=== PATIENT | male | born 1965 | race African-American/Black ===

== ENCOUNTER 2016-06-03 21:30 | Emergency (ER) | payer OTHER ==
[~2016-06-03] VITALS: Ht 177.8 cm; Wt 71.2 kg
[2016-06-03 22:00] VITALS: BP 151/82
[2016-06-03] MEDS ORDERED: VENTOLIN HFA18 GM INH (22:05)
[2016-06-03] MEDS ORDERED: ACETAMINOPHEN-1 EAC1 ORAL (22:05)
[2016-06-03] MEDS ORDERED: GUAIFENESIN AC473 ML ORAL (22:05)
[2016-06-03 22:10] VITALS: BP 151/82
--- NOTE | 2016-06-03 22:55 | Emergency Room Report ---
History of Present Illness General Chief Complaint: Upper Respiratory Illness Source: Patient Present Illness HPI 51 YOM with 4 days of dry cough. No associated fever/chills, productive cough, SOB, wheezing, chest pain, sick contacts, rhinorrhea, sore throat, ear pain. Denies asthma, smoking. Went to clinic today, was given cough syrup, couldnt fill at Pharmacy. States clinic doctor "didnt even listen to my lungs." Allergies: Coded Allergies: No Known Allergies (Unverified , 06/03/16) Patient History Past Medical History: none Past Surgical History: none Pertinent Family History: none Social History: Denies: alcohol use, drug use, smoking Immunizations: UTD Reviewed Nursing Documentation: PMH: Agreed, PSxH: Agreed Nursing Documentation-PMH Past Medical History: No Stated History Review of Systems All Other Systems: negative except mentioned in HPI Physical Exam Vital Signs Date Time Temp Pulse Resp B/P Pulse Ox O2 Delivery O2 Flow Rate FiO2 06/03/16 21:34 97.9 64 16 151/82 100 Room Air Sp02 EP Interpretation: reviewed, normal General Appearance: normal inspection, well appearing, no apparent distress, alert, GCS 15, non-toxic Head: normocephalic, atraumatic Eyes: bilateral eye EOMI, bilateral eye PERRL ENT: normal ENT inspection, hearing grossly normal, normal voice Neck: normal inspection, full range of motion, supple, no bony tend Respiratory: normal inspection, chest non-tender, lungs clear, normal breath sounds, no rhonchi, no respiratory distress, no retraction, no accessory muscle use, no wheezing Cardiovascular #1: regular rate, rhythm, no edema Gastrointestinal: normal inspection, normal bowel sounds, non tender, soft, no guarding, no hernia Genitourinary: no CVA tenderness Musculoskeletal: normal inspection, back normal, normal range of motion, Debo' s Sign negative Neurologic: normal inspection, alert, oriented x3, responsive, wick and base assembler III-XII nml as tested, motor strength/tone normal, speech normal Psychiatric: normal inspection, judgement/insight normal, mood/affect normal Skin: normal inspection, normal color, no rash Lymphatic: normal inspection Medical Decision Making Diagnostic Impression: Primary Impression: Upper respiratory infection Qualified Codes: J06.9 - Acute upper respiratory infection, unspecified; B97.89 - Other viral agents as the cause of diseases classified elsewhere ER Course 51 YOM with 4 days dry cough. VSS. Afebrile. No other symptoms. Lungs CTAB. Well appearing. Very unlikely this is PNA Likely Viral URI, bronchitis Recommended T#3 or cough syrup at night, Ventolin during the day PMD followup DC home Last Vital Signs Date Time Temp Pulse Resp B/P Pulse Ox O2 Delivery O2 Flow Rate FiO2 06/03/16 22:10 97.9 16 151/82 100 Room Air 06/03/16 22:00 64 Status: improved Disposition: HOME, SELF-CARE Condition: Improved Scripts Guaifenesin/Codeine Phosphate (GUAIFENESIN AC COUGH SYRUP) 473 Ml Liquid 1 TSP ORAL QHS Y for For Cough, #473 ML 0 Refills Prov: CHALO PHILLIPS M.D. 06/03/16 Acetaminophen With Codeine (T#3) (TYLENOL #3 TAB*) Y Tab 1 TAB ORAL QHS Y for For Cough, #20 TAB Prov: CHALO PHILLIPS M.D. 06/03/16 Albuterol Sulfate (VENTOLIN HFA) 18 Gm Hfa.aer.ad 1 PUFF INH EVERY 6 HOURS for For Cough, #18 GM 0 Refills Prov: CHALO PHILLIPS M.D. 06/03/16 Referrals: [facility],REFERRING (PCP) Patient Instructions: Upper Respiratory Infection, Adult, Acute Bronchitis, [id number] Additional Instructions: [facility] [place] [facility] - Take Ventolin inhaler during the day for cough - At night, try tylenol with Codeine, cough syrup or tea with honey for cough - Symptoms can last a few weeks CHALO PHILLIPS M.D. Jun 03, 2016 22:55
== END 2016-06-03 22:10 | disposition home or self-care (01) ==
LOC: EMR 21:45
DX: J06.9 Acute upper respiratory infection, unspecified (principal)
CPT/HCPCS: 99284